=== PATIENT | female | born 1975 | race Two or more races ===

== ENCOUNTER 2020-11-22 09:03 | Emergency (ER) | payer OTHER ==
[~2020-11-22] VITALS: Ht 157.5 cm; Wt 72.6 kg
[2020-11-22 09:18] VITALS: BP 149/63
[2020-11-22 09:20] VITALS: BP 149/63
[2020-11-22] MEDS ORDERED: Bacitracin Oint UD TOPIC ONE (09:27)
[2020-11-22] MEDS ORDERED: Tetanus/Diptheria/Pertussis IM ONE (09:30)
--- NOTE | 2020-11-22 09:42 | NUR ---
ED Nurse Note: Pt cleared by health care Provider for discharge. DC instructions/prescription was given and explained to pt and verbalized understanding of teachings. All medical deviecs such as ID band removed. Pt is AAO x4, ambulatory and left with all personal belongings.
--- NOTE | 2020-11-22 10:11 | Emergency Room Report ---
History of Present Illness General Chief Complaint: Laceration Source: Patient Present Illness HPI Patient presents emergency department today complaining laceration to right index finger. Patient states that she was cutting cheese and accidentally sliced her hand. There is a piece of skin missing from patient's right index finger on the radial aspect. This appears to be superficial. This occurred shortly early prior to arrival. And has only been about an hour or so. Patient does not remember when her last tetanus shot was she thinks is greater than 10 years. No other injuries noted. That she denies any numbness tingling or weakness. Symptoms noted to be mild to moderate. No other modifying factors. No other associated signs and symptoms. No other complaints were noted. Allergies: Coded Allergies: No Known Allergies (Unverified , 11/22/20) COVID-19 Screening Contact w/high risk pt: No Recent Travel to affected area: No Experienced COVID-19 symptoms?: No COVID-19 Testing performed PRE CODER: No Patient History Past Medical History: none Past Surgical History: none Pertinent Family History: none Social History: Denies: smoking, alcohol use, drug use Now: No Reviewed Nursing Documentation: PMH: Agreed; PSxH: Agreed Nursing Documentation-PMH Past Medical History: No Stated History Review of Systems All Other Systems: negative except mentioned in HPI Physical Exam Vital Signs Date Time Temp Pulse Resp B/P (MAP) Pulse Ox O2 Delivery O2 Flow Rate FiO2 11/22/20 09:11 97.9 96 18 149/63 (91) 98 Room Air Sp02 EP Interpretation: reviewed, normal General Appearance: normal inspection, well appearing, no apparent distress, alert Head: atraumatic Eyes: bilateral eye normal inspection ENT: hearing grossly normal, normal voice Neck: supple Respiratory: no respiratory distress, no retraction Cardiovascular #1: no edema Gastrointestinal: soft Musculoskeletal: normal range of motion, other - Laceration right index finger. No evidence of deep tissue injury. Missing skin. Neurologic: alert, responsive, speech normal, normal inspection Psychiatric: normal inspection, judgement/insight normal, mood/affect normal Skin: no rash Medical Decision Making Diagnostic Impression: Primary Impression: Laceration ER Course Patient presents emergency department today complaining of a laceration to the right index finger. There is no evidence deep tissue injury. This is fairly superficial. There is no need for suture repair because there is no skin left. There is no evidence of deep tissue injury. Therefore felt that this could be treated with good wound care. The wound was irrigated and dressed appropriately. Patient was given wound care instructions. Patient's tetanus was updated. Patient is advised to follow up with primary doctor in 2-3 days and return the emergency room for any worsening symptoms and as needed. Last Vital Signs Date Time Temp Pulse Resp B/P (MAP) Pulse Ox O2 Delivery O2 Flow Rate FiO2 11/22/20 09:18 97.9 18 149/63 98 Room Air 11/22/20 09:11 96 Status: improved Disposition: HOME, SELF-CARE Condition: Stable Referrals: NOT CHOSEN IPA/,REFERRING (PCP) Patient Instructions: Laceration Care, Adult, Nonsutured Laceration Care Hayden Dsouza MD Nov 22, 2020 10:11
== END 2020-11-22 09:20 | disposition home or self-care (01) ==
LOC: EMR 09:20
DX: S61.210A Laceration without foreign body of right index finger without damage to nail, initial encounter (principal); W26.0XXA Contact with knife, initial encounter; Y93.G3 Activity, cooking and baking; Y92.9 Unspecified place or not applicable; Z23 Encounter for immunization
CPT/HCPCS: 90471; 90715; 99282